=== PATIENT | female | born 1970 | race Caucasian/White ===

== ENCOUNTER 2016-11-15 22:30 | Emergency (ER) | payer SELFPAY ==
[2016-11-15] MEDS ORDERED: Ondansetron HCl/PF 4 MG/2 ML Vial ONE (23:34)
[2016-11-15] MEDS ORDERED: traMADol HCl 50 MG TAB ONE (23:34)
--- NOTE | 2016-11-16 08:36 | ULT ---
PRELIMINARY REPORT/[facility]/EMERGENCY AFTER HOURS PROCEDURE: EXAM: US Abdomen Limited, Right Upper Quadrant EXAM DATE/TIME: Exam ordered 11/16/2016 12:06 AM CLINICAL HISTORY: 46 years old, female; Pain and signs and symptoms; Nausea and vomiting; Abdominal pain; Localized; R ight upper quadrant (ruq); Patient HX: 46f with pmhx multiple hepatic adenoma C/O 3 days of ruq abdo medhat pain, nausea and vomiting. Chronic abdominal pain, though reports this is a new location. TECHNIQUE: Real-time ultrasound of the right upper quadrant with image documentation. COMPARISON: No relevant prior studies available. FINDINGS: Liver: 2.1 cm hyperechoic focus in the right lobe of the liver is probably a hemangioma but is indet erminate. Hepatic steatosis. No intrahepatic bile duct dilation. Gallbladder: Unremarkable. No gallstones. Common bile duct: Unremarkable as visualized. No stones. No dilation. Pancreas: Unremarkable as visualized. Right kidney: Unremarkable. No stones. No solid mass. No hydronephrosis. IMPRESSION: 2.1 cm hyperechoic focus in the right lobe of the liver is probably a hemangioma but is indeterminat e. Thank you for allowing us to participate in the care of your patient. Dictated and Authenticated by: Jason Plummer MD 11/16/2016 12:43 AM Central Time ([place] \T\ [place]) FINAL REPORT RIGHT UPPER QUADRANT ULTRASOUND: Date 11/16/16 FINDINGS/IMPRESSION: I agree with the preliminary report given by by Jason Plummer of [facility]. Recommend CT scan of the abdomen with and without IV contrast using the hemangioma protocol. CODE T. POS: [facility]
--- NOTE | 2016-11-19 14:59 | EKG ---
Test Reason : Blood Pressure : / mmHG Vent. Rate : 086 BPM Atrial Rate : 086 BPM P-R Int : 134 ms QRS Dur : 076 ms QT Int : 358 ms P-R-T Axes : 067 081 077 degrees QTc Int : 428 ms Normal sinus rhythm Possible Left atrial enlargement Borderline ECG Confirmed by ANN BRADSHAW D.O. ([id number]), content editor GISSELLE NEWMAN ([id number]) on 11/19/2016 2:59:09 PM Referred By: Confirmed By:ANN BRADSHAW D.O.
== END 2016-11-16 01:25 | disposition home or self-care (01) ==
LOC: ERS 22:30
DX: R16.0 Hepatomegaly, not elsewhere classified (principal); Z79.899 Other long term (current) drug therapy
CPT/HCPCS: 76705; 93005; 96374; J2405